=== PATIENT | male | born 1960 | race Caucasian/White ===

== ENCOUNTER 2018-08-26 22:20 | Emergency (ER) | payer OTHER ==
[2018-08-26] MEDS ORDERED: CEFAZOLIN/SWI 1gm 1 GM/10 ML SYR ONE (23:34)
[2018-08-26] MEDS ORDERED: TETANUS & DIPHTHERIA TOX,ADULT 0.5 ML VIAL ONE (23:34)
[2018-08-26] MEDS ORDERED: THIAMINE 200 MG/2 ML INJ ONE (23:34)
[2018-08-26] MEDS ORDERED: NA CHLORIDE 0.9% 1,000 ML ONE (23:35)
[2018-08-26 23:49] LABS: Absolute Lymphocytes (CBC) 1.6 K/uL (0.7-4.9); Absolute Monocytes 0.8 K/uL (0.1-1.3); Absolute Neutrophil 3.9 K/uL (1.8-8.0); Basophils % 0.3 % (0-1.3); Eosinophils % 1.9 % (0-4.4); Hematocrit 40.4 % (39.6-49.0); Lymphocytes % 24.8 % (15.3-44.8); MCH 32.9 pg (27.0-35.0); MCV 94.7 fL (80-100); MPV 7.4 fL (7.6-11.3); Monocytes % 12.4 % (3.3-12.3); RBC Red Blood Cell Count 4.26 M/uL (4.33-5.43)
[2018-08-26] MEDS ORDERED: LIDOCAINE 1% W/EPI 1:100,000 MDV 50 ML VIAL ONE (23:49)
[2018-08-26 23:50] LABS: Protime INR 0.86
[2018-08-27 00:08] LABS: ALT/SGPT 28 U/L (12-78); AST/SGOT 25 U/L (15-37); Albumin 3.5 g/dL (3.4-5.0); Alkaline Phosphatase 53 U/L (45-117); BUN Blood Urea Nitrogen 16 mg/dL (7-18); Bicarbonate 18 mmol/L (21-32); Bilirubin Direct 0.1 mg/dL (0-0.2); Bilirubin Total 0.1 mg/dL (0.2-1.0); Glucose Level 71 mg/dL (74-106); Lipase 795 U/L (73-393); Magnesium 1.9 mg/dL (1.8-2.4); NT PRO-BNP 18 pg/mL (<125); Potassium 3.7 mmol/L (3.5-5.1); Protein, Total 6.4 g/dL (6.4-8.2); Sodium Level 143 mmol/L (136-145); Troponin (Emerg Dept Use Only) < 0.02 ng/mL (0.0-0.045)
[2018-08-27] MEDS ORDERED: D50W 25 GM/50 ML SYRINGE IV ONE (00:40)
--- NOTE | 2018-08-27 01:10 | ER ---
Nurse's Notes [facility] Name: Eddie Stone Age: 57 yrs Sex: Male : 1960 Arrival Date: 08/26/2018 Time: 22:21 Bed 8 Private MD: Diagnosis: Alcohol abuse with intoxication;Superficial injury of head;Altered mental status, unspecified;Laceration without foreign body of other part of head-forehead ;Hypoglycemia, unspecified Presentation: 08/26 22:28 Presenting complaint: EMS states: Pt found at the holiday in by the elevators, ea laceration to forehead, possible LOC. Transition of care: patient was not received from another setting of care. Onset of symptoms was August 26, 2018. Risk Assessment: Do you want to hurt yourself or someone else? Patient reports no desire to harm self or others. Initial Sepsis Screen: Does the patient meet any 2 criteria? No. Patient's initial sepsis screen is negative. Does the patient have a suspected source of infection? No. Patient's initial sepsis screen is negative. Care prior to arrival: None. 22:28 Method Of Arrival: EMS: [facility] ea 22:28 Acuity: PAULY 3 ea 22:46 Mechanism of Injury: Laceration sustained . ea 22:47 Trauma event details: Injury occurred in the [facility], Injury occurred: at ea home. Injury occurred: August 26, 2018 Injury occurred at: 22:00. Triage Assessment: 22:41 General: Appears in no apparent distress. Behavior is cooperative. Pain: Denies pain. ea Neuro: Level of Consciousness is awake, alert, obeys commands, Oriented to person, place, time, situation. Cardiovascular: Patient's skin is warm and dry. Cardiovascular: Heart tones S1 S2 present. Respiratory: Airway is patent Respiratory effort is even, unlabored, Respiratory pattern is regular, symmetrical, Breath sounds are clear bilaterally. Derm: laceration noted to forehead. Injury Description: Laceration sustained to forehead is clean, 2.6 to 7.5 cm long, a small amount of bleeding noted at this time. Historical: - Allergies: 22:38 No Known Allergies; ea - Home Meds: 22:38 glyburide 5 mg Oral tab 2 tabs 2 times per day [Active]; metformin 1,000 mg Oral tab 1 ea tab 2 times per day [Active]; Epitol 200 mg oral tab 1 tab every 12 hours [Active]; allopurinol 300 mg Oral tab 1 tab once daily [Active]; citalopram 40 mg tab 1 tab once daily [Active]; lisinopril 5 mg Oral tab 1 tab once daily [Active]; aspirin 81 mg Oral chew 1 tab once daily [Active]; tamsulosin 0.4 mg oral cp24 1 cap BID [Active]; alprazolam 0.5 mg Oral Tb24 2 tabs once daily [Active]; bupropion HCl 150 mg Oral TbER 1 tab 2 times per day [Active]; omeprazole 20 mg Oral cpDR 1 cap 2 times per day [Active]; - PMHx: 22:38 Diabetes - NIDDM; Hypertension; Anxiety; ea - PSHx: 22:38 Unable to obtain; ea - Immunization history:: Adult Immunizations up to date. - Social history:: Smoking status: Patient uses tobacco products, denies chronic smoking, but will smoke occasionally, Patient uses alcohol, occasionally. Pt verbalized he had been drinking today. - Immunization history: Last tetanus immunization: unknown. - Ebola Screening: : No symptoms or risks identified at this time. Screenin:39 Abuse screen: Denies threats or abuse. Nutritional screening: No deficits noted. ea Tuberculosis screening: No symptoms or risk factors identified. Fall Risk Fall in past 12 months (25 points). Primary Survey: 22:28 A: Airway: patent. Breathing/Chest: Respiratory pattern: regular, Respiratory effort: ea spontaneous, unlabored, Breath sounds: clear, bilaterally. Circulation: Skin color: pink, Skin temperature: warm. Disability Alert. 23:30 Reassessment Airway Airway Patent Breathing/Chest Respiratory pattern Regular ea Respiratory effort Spontaneous Unlabored Chest inspection Symmetrical. Secondary Survey: 22:28 Injury Description: Laceration sustained to forehead is clean, 2.6 to 7.5 cm long. ea Assessment: 22:43 Reassessment: see triage assessment. ea 23:15 Reassessment: Patient and/or family updated on plan of care and expected duration. Pain ea level reassessed. Pt resting with eyes closed, respirations even and unlabored, chest expansions even and symmetrical. No s/s of pain or discomfort noted at this time. 08/27 00:06 Reassessment: Patient and/or family updated on plan of care and expected duration. Pain ea level reassessed. Pt resting with eyes closed, respirations even and unlabored, chest expansions expansions even and symmetrical. 01:07 Reassessment: provider at bedside for sutures. ak1 01:25 Reassessment: Pt attempted to call for ride home, reported everyone is still asleep. Pt ea resting on stretcher, respirations even and unlabored, chest expansions even and symmetrical. No s/s of pain or discomfort noted at this time. 02:13 Reassessment: Patient and/or family updated on plan of care and expected duration. Pain ea level reassessed. Pt resting with eyes closed, respirations even and unlabored. Chest expansions even and symmetrical. No s/s of pain or discomfort noted at this time. 03:20 Reassessment: Patient and/or family updated on plan of care and expected duration. Pain ea level reassessed. Pt resting with eyes closed, respirations even and unlabored. Chest expansions even and symmetrical. No s/s of pain or discomfort noted at this time. 04:36 Reassessment: No changes from previously documented assessment. ea 05:00 Reassessment: Patient and/or family updated on plan of care and expected duration. Pain ea level reassessed. Pt resting with eyes closed, respirations even and unlabored. Chest expansions even and symmetrical. No s/s of pain or discomfort noted at this time. 06:20 Reassessment: Patient and/or family updated on plan of care and expected duration. Pain ea level reassessed. Patient is alert, oriented x 3, equal unlabored respirations, skin warm/dry/pink. Pt reports he was able to contact a friend and he would pick him up soon. Discharge instructions given to patient, pt discharged to [facility]. Vital Signs: 08/26 22:40 BP 115 / 70; Pulse 91; Resp 18; Temp 97.8; Pulse Ox 98% on R/A; Weight 104.33 kg; ea Height 5 ft. 10 in. (177.80 cm); Pain 0/10; 23:00 BP 109 / 78; Pulse 87; Resp 18; Pulse Ox 99% ; ea 08/27 00:53 BP 100 / 66; Pulse 87; Resp 16; Pulse Ox 98% ; ea 01:00 BP 100 / 66; Pulse 87; Resp 18; Pulse Ox 99% ; ea 02:00 BP 98 / 53; Pulse 97; Resp 16; Pulse Ox 99% ; ea 03:00 BP 106 / 56; Pulse 90; Resp 18; Pulse Ox 96% ; ea 04:37 BP 114 / 70; Pulse 80; Resp 16; Pulse Ox 99% on R/A; ea 05:30 BP 120 / 70; Pulse 78; Resp 18; Pulse Ox 98% ; ea 06:00 BP 131 / 84; Pulse 80; Resp 18; Temp 98(O); Pulse Ox 98% ; Pain 0/10; ea 08/26 22:40 Body Mass Index 33.00 (104.33 kg, 177.80 cm) ea [place] Coma Score: 08/26 22:45 Eye Response: spontaneous(4). Verbal Response: oriented(5). Motor Response: obeys ea commands(6). Total: 15. 08/27 06:00 Eye Response: spontaneous(4). Verbal Response: oriented(5). Motor Response: obeys ea commands(6). Total: 15. Trauma Score (Adult): 08/26 22:45 Eye Response: spontaneous(1); Verbal Response: oriented(1); Motor Response: obeys ea commands(2); Systolic BP: > 89 mm Hg(4); Respiratory Rate: 10 to 29 per min(4); [place] Score: 15; Trauma Score: 12 ED Course: 22:21 Patient arrived in ED. al2 22:28 Ivon Glover, RN is Primary Nurse. ea 22:28 Patient maintains SpO2 saturation greater than 95% on room air. Thermoregulation: warm ea blanket given to patient. 22:32 Triage completed. ea 22:32 Preston Stephen MD is Attending Physician. adonis 22:39 Arm band placed on right wrist. Patient placed in an exam room, on a stretcher, on ea pulse oximetry. 22:39 Patient has correct armband on for positive identification. Bed in low position. Call ea light in reach. Side rails up X2. 23:36 X-ray completed. Portable x-ray completed in exam room. Patient tolerated procedure kp1 well. 23:42 XRAY Chest (1 view) In Process Unspecified. EDMS 08/27 00:[address] stretcher. kw1 00:48 Head C Spine Mpr Wo Con In Process Unspecified. EDMS 00:49 CT completed. Patient tolerated procedure well. Patient moved back from CT. kw1 06:15 IV discontinued, intact, bleeding controlled, No redness/swelling at site. Pressure ea dressing applied. 06:23 No provider procedures requiring assistance completed. 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 Exp: ea 10/27/2020. Lot #: [id number]. } Route: IM; Site: left deltoid; 08/27 00:08 Follow up: Response: No adverse reaction ea 08/26 23:36 Drug: Ancef 1 grams Route: IVPB; Site: right antecubital; ea 08/27 00:00 Follow up: Response: No adverse reaction; IV Status: Completed infusion ea 00:50 Drug: D50W 50 ml Route: IVP; Site: right antecubital; ea 02:12 Follow up: Response: No adverse reaction; Blood sugar is elevated; Blood sugar is ea elevated 129 Intake: 01:30 IV: 1000ml; Total: 1000ml. ea 06:24 PO: 0ml; IV: 1000ml (IV Fluid); Total: 2000ml. ea Output: 06:24 Urine: 500ml (Voided); Total: 500ml. ea Outcome: 01:10 Discharge ordered by MD. lamb 06:23 Discharged to ea 06:23 Discharged to [facility] awaiting on friend for transportation home 06:23 Condition: improved 06:23 Discharge instructions given to patient, Instructed on discharge instructions, follow up and referral plans. medication usage, Demonstrated understanding of instructions, follow-up care, medications, Prescriptions given X 1. 06:25 Patient's length of stay in the Emergency Department was greater than 2 hours. Pt ea awaiting on transportationPatient's length of stay extended due to 06:26 Patient left the ED. ea Signatures: Dispatcher [employer] EDPreston Foster MD MD adonis Krenek, Jessica, RN RN Vika Luther kp1 Ivon Glover, RN RN Briseyda Valdez1 Adelia Lloyd2 Corrections: (The following items were deleted from the chart) 08/26 22:47 22:47 Trauma event details: Injury occurred in the [facility], Injury occurred: ea at home. Injury occurred: August 26, 2018 Injury occurred at: 22:47 ea
--- NOTE | 2018-08-27 01:10 | EDPHYS ---
Physician Documentation [facility] Name: Eddie Stone Age: 57 yrs Sex: Male : 1960 Arrival Date: 08/26/2018 Time: 22:21 Bed 8 Private MD: ED Physician Preston Stephen HPI: 08/26 23:09 This 57 yrs old Male presents to ER via EMS with complaints of etoh and adonis ppassed out. 23:09 The patient presents with confusion, decreased mental status. Onset: The adonis symptoms/episode began/occurred just prior to arrival. Possible causes: alcohol. Associated signs and symptoms: Pertinent positives: confusion. Current symptoms: In the emergency department the patient's symptoms are unchanged from the initial presentation. Patient's baseline: Neuro: alert but confused. It is unknown whether or not the patient has had similar symptoms in the past. Historical: - Allergies: 22:38 No Known Allergies; ea - Home Meds: 22:38 glyburide 5 mg Oral tab 2 tabs 2 times per day [Active]; metformin 1,000 mg Oral tab 1 ea tab 2 times per day [Active]; Epitol 200 mg oral tab 1 tab every 12 hours [Active]; allopurinol 300 mg Oral tab 1 tab once daily [Active]; citalopram 40 mg tab 1 tab once daily [Active]; lisinopril 5 mg Oral tab 1 tab once daily [Active]; aspirin 81 mg Oral chew 1 tab once daily [Active]; tamsulosin 0.4 mg oral cp24 1 cap BID [Active]; alprazolam 0.5 mg Oral Tb24 2 tabs once daily [Active]; bupropion HCl 150 mg Oral TbER 1 tab 2 times per day [Active]; omeprazole 20 mg Oral cpDR 1 cap 2 times per day [Active]; - PMHx: 22:38 Diabetes - NIDDM; Hypertension; Anxiety; ea - PSHx: 22:38 Unable to obtain; ea - Immunization history:: Adult Immunizations up to date. - Social history:: Smoking status: Patient uses tobacco products, denies chronic smoking, but will smoke occasionally, Patient uses alcohol, occasionally. Pt verbalized he had been drinking today. - Immunization history: Last tetanus immunization: unknown. - Ebola Screening: : No symptoms or risks identified at this time. ROS: 23:11 Constitutional: Negative for fever, chills, and weight loss, Eyes: Negative for injury, adonis pain, redness, and discharge, ENT: Negative for injury, pain, and discharge, Neck: Negative for injury, pain, and swelling, Cardiovascular: Negative for chest pain, palpitations, and edema, Respiratory: Negative for shortness of breath, cough, wheezing, and pleuritic chest pain, Abdomen/GI: Negative for abdominal pain, nausea, vomiting, diarrhea, and constipation, Back: Negative for injury and pain, : Negative for injury, bleeding, discharge, and swelling, MS/Extremity: Negative for injury and deformity, Psych: Negative for depression, anxiety, suicide ideation, homicidal ideation, and hallucinations, Allergy/Immunology: Negative for hives, rash, and allergies, Endocrine: Negative for neck swelling, polydipsia, polyuria, polyphagia, and marked weight changes, Hematologic/Lymphatic: Negative for swollen nodes, abnormal bleeding, and unusual bruising. 23:11 Skin: Positive for laceration(s), of the forehead. Exam: 23:11 Constitutional: This is a well developed, well nourished patient who is awake, alert, adonis and in no acute distress. Head/Face: Normocephalic, atraumatic. Eyes: Pupils equal round and reactive to light, extra-ocular motions intact. Lids and lashes normal. Conjunctiva and sclera are non-icteric and not injected. Cornea within normal limits. Periorbital areas with no swelling, redness, or edema. ENT: Nares patent. No nasal discharge, no septal abnormalities noted. Tympanic membranes are normal and external auditory canals are clear. Oropharynx with no redness, swelling, or masses, exudates, or evidence of obstruction, uvula midline. Mucous membranes moist. Neck: Trachea midline, no thyromegaly or masses palpated, and no cervical lymphadenopathy. Supple, full range of motion without nuchal rigidity, or vertebral point tenderness. No Meningismus. Chest/axilla: Normal chest wall appearance and motion. Nontender with no deformity. No lesions are appreciated. Cardiovascular: Regular rate and rhythm with a normal S1 and S2. No gallops, murmurs, or rubs. Normal PMI, no JVD. No pulse deficits. Respiratory: Lungs have equal breath sounds bilaterally, clear to auscultation and percussion. No rales, rhonchi or wheezes noted. No increased work of breathing, no retractions or nasal flaring. Back: No spinal tenderness. No costovertebral tenderness. Full range of motion. Male : Normal genitalia with no discharge or lesions. Skin: Warm, dry with normal turgor. Normal color with no rashes, no lesions, and no evidence of cellulitis. MS/ Extremity: Pulses equal, no cyanosis. Neurovascular intact. Full, normal range of motion. Neuro: Awake and alert, GCS 15, oriented to person, place, time, and situation. Cranial nerves II-XII grossly intact. Motor strength 5/5 in all extremities. Sensory grossly intact. Cerebellar exam normal. Normal gait. Psych: Awake, alert, with orientation to person, place and time. Behavior, mood, and affect are within normal limits. 23:11 Abdomen/GI: Inspection: Bowel sounds: normal, Palpation: abdomen is soft and non-tender, Liver: no appreciated palpable abnormalities, Hernia: not appreciated. Vital Signs: 22:40 BP 115 / 70; Pulse 91; Resp 18; Temp 97.8; Pulse Ox 98% on R/A; Weight 104.33 kg; ea Height 5 ft. 10 in. (177.80 cm); Pain 0/10; 23:00 BP 109 / 78; Pulse 87; Resp 18; Pulse Ox 99% ; ea 08/27 00:53 BP 100 / 66; Pulse 87; Resp 16; Pulse Ox 98% ; ea 01:00 BP 100 / 66; Pulse 87; Resp 18; Pulse Ox 99% ; ea 02:00 BP 98 / 53; Pulse 97; Resp 16; Pulse Ox 99% ; ea 03:00 BP 106 / 56; Pulse 90; Resp 18; Pulse Ox 96% ; ea 04:37 BP 114 / 70; Pulse 80; Resp 16; Pulse Ox 99% on R/A; ea 05:30 BP 120 / 70; Pulse 78; Resp 18; Pulse Ox 98% ; ea 06:00 BP 131 / 84; Pulse 80; Resp 18; Temp 98(O); Pulse Ox 98% ; Pain 0/10; ea 08/26 22:40 Body Mass Index 33.00 (104.33 kg, 177.80 cm) ea [place] Coma Score: 08/26 22:45 Eye Response: spontaneous(4). Verbal Response: oriented(5). Motor Response: obeys ea commands(6). Total: 15. 08/27 06:00 Eye Response: spontaneous(4). Verbal Response: oriented(5). Motor Response: obeys ea commands(6). Total: 15. Trauma Score (Adult): 08/26 22:45 Eye Response: spontaneous(1); Verbal Response: oriented(1); Motor Response: obeys ea commands(2); Systolic BP: > 89 mm Hg(4); Respiratory Rate: 10 to 29 per min(4); [place] Score: 15; Trauma Score: 12 Laceration: 23:11 Wound Repair of 2.5cm ( 1.0in ) subcutaneous laceration to forehead. Linear shaped.. adonis Distal neuro/vascular/tendon intact. Anesthesia: Local anesthetic administered with 8 mls of 1% lidocaine w/ Epi. Wound prep: Simple cleansing by me. Skin closed with 4 5-0 Prolene using interrupted sutures and sterile technique. Dressed with Neosporin. Patient tolerated well. MDM: 22:32 Patient medically screened. [facility] 23:17 Data reviewed: vital signs, nurses notes, lab test result(s), EKG, radiologic studies, [facility] CT scan. 08/26 23:08 Order name: Basic Metabolic Panel; Complete Time: 00:19 [facility] 08/26 23:08 Order name: CBC with Diff; Complete Time: 00:19 [facility] 08/26 23:08 Order name: LFT's; Complete Time: 00:19 [facility] 08/26 23:08 Order name: Magnesium; Complete Time: 00:19 [facility] 08/26 23:08 Order name: NT PRO-BNP; Complete Time: 00:19 [facility] 08/26 23:08 Order name: PT-INR; Complete Time: 00:19 [facility] 08/26 23:08 Order name: Troponin (emerg Dept Use Only); Complete Time: 00:19 [facility] 08/26 23:08 Order name: Lipase; Complete Time: 00:19 [facility] 08/26 23:08 Order name: Acetaminophen; Complete Time: 00:19 [facility] 08/26 23:08 Order name: ETOH Level; Complete Time: 04:01 [facility] 08/26 23:08 Order name: Ptt, Activated; Complete Time: 00:19 [facility] 08/26 23:08 Order name: Salicylate; Complete Time: 00:19 [facility] 08/26 23:08 Order name: Urine Drug Screen; Complete Time: 04:01 [facility] 08/27 02:08 Order name: ETOH Level; Complete Time: 04:01 08/26 23:08 Order name: XRAY Chest (1 view) [facility] 08/26 23:08 Order name: EKG; Complete Time: 23:19 [facility] 08/26 23:08 Order name: Cardiac monitoring; Complete Time: 23:52 [facility] 08/26 23:08 Order name: EKG - Nurse/Tech; Complete Time: 23:52 [facility] 08/26 23:08 Order name: IV Saline Lock; Complete Time: 23:52 [facility] 08/26 23:08 Order name: Labs collected and sent; Complete Time: 23:53 [facility] 08/26 23:08 Order name: O2 Per Protocol; Complete Time: 23:53 [facility] 08/26 23:08 Order name: O2 Sat Monitoring; Complete Time: 23:53 [facility] 08/27 00:30 Order name: Head C Spine Mpr Wo Con EDMS 08/27 02:14 Order name: Urine Dipstick--Ancillary (enter results); Complete Time: 04:01 [facility] 08/26 23:08 Order name: Urine Dipstick-Ancillary (obtain specimen); Complete Time: 02:13 [facility] Administered Medications: 23:31 Drug: NS 0.9% 1000 ml Route: IV; Rate: 1 bolus; Site: right antecubital; 08/27 01:30 Follow up: Response: No adverse reaction; IV Status: Completed infusion; IV Intake: ea 1000ml 08/26 23:31 Drug: Thiamine 100 mg Route: IV; Rate: bolus; Site: right antecubital; 08/27 00:00 Follow up: Response: No adverse reaction 08/26 23:36 Drug: Tetanus-Diphtheria Toxoid Adult 0.5 ml {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 Exp: ea 10/27/2020. Lot #: [id number]. } Route: IM; Site: left deltoid; 08/27 00:08 Follow up: Response: No adverse reaction 08/26 23:36 Drug: Ancef 1 grams Route: IVPB; Site: right antecubital; 08/27 00:00 Follow up: Response: No adverse reaction; IV Status: Completed infusion 00:50 Drug: D50W 50 ml Route: IVP; Site: right antecubital; ea 02:12 Follow up: Response: No adverse reaction; Blood sugar is elevated; Blood sugar is ea elevated 129 Disposition: 08/27/18 01:10 Discharged to Home. Impression: Alcohol abuse with intoxication, Superficial injury of head, Altered mental status, unspecified, Laceration without foreign body of other part of head - forehead , Hypoglycemia, unspecified. - Condition is Stable. - Discharge Instructions: Alcohol Intoxication, Head Injury, Adult, Facial Laceration, Alcohol Intoxication, [id number], Alcohol Abuse and Nutrition, Facial Laceration, [id number], Head Injury, Adult, [id number]-[id number]. - Prescriptions for Keflex 500 mg Oral Capsule - take 1 capsule by ORAL route every 6 hours for 10 days; 40 capsule. - Medication Reconciliation Form, Thank You Letter, Antibiotic Education, Prescription Opioid Use form. - Work release form (08/27/18 06:37). mw2 - Follow up: Private Physician; When: 2 - 3 days; Reason: Recheck today's complaints, Continuance of care, Re-evaluation by your physician. - Problem is new. - Symptoms have improved. Signatures: Dispatcher [employer] EDOR Preston Stephen MD MD cha Antunez, Elena, RN RN Demetris Meehan mw2 Corrections: (The following items were deleted from the chart) 00:30 08/26 23:19 Head C Spine CAP W Con+[id number].[email or web address].BRZ ordered. [facility] 08/27 06:26 01:10 08/27/2018 01:10 Discharged to Home. Impression: Alcohol abuse with intoxication; ea Superficial injury of head; Altered mental status, unspecified; Laceration without foreign body of other part of head - forehead ; Hypoglycemia, unspecified. Condition is Stable. Discharge Instructions: Alcohol Intoxication, Head Injury, Adult, Facial Laceration, Alcohol Intoxication, [id number], Alcohol Abuse and Nutrition, Facial Laceration, Iyoz-ym-[id number], Head Injury, Adult, [id number]-bh-[id number]. Prescriptions for Keflex 500 mg Oral Capsule - take 1 capsule by ORAL route every 6 hours for 10 days; 40 capsule. and Forms are Medication Reconciliation Form, Thank You Letter, Antibiotic Education, Prescription Opioid Use. Follow up: Private Physician; When: 2 - 3 days; Reason: Recheck today's complaints, Continuance of care, Re-evaluation by your physician. Problem is new. Symptoms have improved. adonis
[2018-08-27 02:21] LABS: Urine Blood NEGATIVE (NEG); Urine Glucose NEGATIVE (NEG); Urine Protein NEGATIVE (NEG)
[2018-08-27 03:48] LABS: Barbiturates NEGATIVE (NEGATIVE); Benzodiazepines NEGATIVE (NEGATIVE); Cocaine NEGATIVE (NEGATIVE); METHAMPHETAM NEGATIVE (NEGATIVE); Methadone NEGATIVE (NEGATIVE); Opiates NEGATIVE (NEGATIVE); Phencyclidine NEGATIVE (NEGATIVE); THC Cannibis NEGATIVE (NEGATIVE)
--- NOTE | 2018-08-27 07:03 | EKG ---
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
--- NOTE | 2018-08-27 09:43 | RAD REPORT ---
EXAM DESCRIPTION: CT - [id number] - 08/27/2018 3:01 am CLINICAL HISTORY: Trauma, head and neck injury. PAIN COMPARISON: No comparisons TECHNIQUE: Axial 5 mm thick images of the head were obtained. Axial 2 mm thick images of the cervical spine were obtained with sagittal and coronal reconstruction images generated and reviewed. All CT scans are performed using dose optimization technique as appropriate and may include automated exposure control or mA/KV adjustment according to patient size. FINDINGS: CT HEAD WITHOUT CONTRAST: No acute hemorrhage, hydrocephalus or extra-axial collection is identified.No areas of brain edema or midline shift. The paranasal sinuses and mastoids are clear.The calvarium is intact. CT CERVICAL SPINE WITHOUT CONTRAST: No fracture or subluxation.Mild C6-7 spondylosis.No prevertebral soft tissues swelling is identified. IMPRESSION: No acute intracranial or cervical spine findings.
--- NOTE | 2018-08-27 09:53 | RAD REPORT ---
EXAM DESCRIPTION: RAD - Chest Single View - 08/26/2018 11:42 pm CLINICAL HISTORY: COUGH Chest pain. COMPARISON: No comparisons FINDINGS: Portable technique limits examination quality. The lungs are grossly clear. The heart is normal in size. No displaced fractures. IMPRESSION: No acute intrathoracic process suspected.
== END 2018-08-27 06:26 | disposition home or self-care (01) ==
LOC: ER 22:20
PROC: 0JQ10ZZ Repair Face Subcutaneous Tissue and Fascia, Open Approach (ICD-10-PCS; principal; 2018-08-27)
DX: S01.81XA Laceration without foreign body of other part of head, initial encounter (principal); S00.80XA Unspecified superficial injury of other part of head, initial encounter; F10.129 Alcohol abuse with intoxication, unspecified; E11.649 Type 2 diabetes mellitus with hypoglycemia without coma; Z72.0 Tobacco use; Z79.82 Long term (current) use of aspirin; Z23 Encounter for immunization; I10 Essential (primary) hypertension
CPT/HCPCS: 36415; 70450; 71045; 72125; 80048; 80076; 80307; 80320; 80329; 81003; 82962; 83690; 83735; 83880; 84484; 85025; 85610; 85730; 90714; 93005; 96361; 96365; 96375; 99285; J0690; J3411; J7030